=== PATIENT | male | born 1950 | race Caucasian/White ===

== ENCOUNTER 2018-11-09 12:14 | Emergency (ER) | payer OTHER ==
[2018-11-09] MEDS ORDERED: LIDOCAINE 1% MPF 2 ML AMPULE ONE (13:35)
--- NOTE | 2018-11-09 14:04 | ER ---
Nurse's Notes [facility] Name: Robert Gutierrez Age: 68 yrs Sex: Male : 1950 Arrival Date: 11/09/2018 Time: 12:21 Bed 23 Private MD: out of town, doctor Diagnosis: Sebaceous cyst Presentation: 11/09 12:26 Presenting complaint: Patient states: "I have a little cyst on my back just above the aj1 belt line. It started being uncomfortable yesterday, by the time I got home from work it was bigger and its all red" Denies drainage, fever. Transition of care: patient was not received from another setting of care. Onset of symptoms was October 2018. Risk Assessment: Do you want to hurt yourself or someone else? Patient reports no desire to harm self or others. Initial Sepsis Screen: Does the patient meet any 2 criteria? HR > 90 bpm. No. Patient's initial sepsis screen is negative. Does the patient have a suspected source of infection? Yes: Skin breakdown/wound. Care prior to arrival: None. 12:26 Method Of Arrival: Ambulatory aj 12:26 Acuity: DHRUV 4 aj1 Triage Assessment: 12:30 General: Appears in no apparent distress. comfortable, Behavior is calm, cooperative, aj1 appropriate for age. Pain: Complains of pain in coccyx Pain currently is 8 out of 10 on a pain scale. Neuro: Level of Consciousness is awake, alert, obeys commands. Cardiovascular: Patient's skin is warm and dry. Respiratory: Airway is patent Respiratory effort is even, unlabored, Respiratory pattern is regular, symmetrical. Historical: - Allergies: 12:30 No Known Allergies; aj1 - Home Meds: 12:30 Metformin Oral [Active]; Glipizide Oral [Active]; finesteride [Active]; Flomax Oral aj1 [Active]; Lisinopril Oral [Active]; meloxicam oral oral [Active]; - PMHx: 12:30 Diabetes - NIDDM; Hypertension; Arthritis; BPH; aj1 12:30 Agent Izard exposure; aj1 - Immunization history:: Flu vaccine is up to date. - Social history:: Smoking status: Patient/guardian denies using tobacco. - Ebola Screening: : Patient denies travel to an Ebola-affected area in the 21 days before illness onset. Screenin:17 Abuse screen: Denies threats or abuse. Nutritional screening: No deficits noted. tl3 Tuberculosis screening: No symptoms or risk factors identified. Fall Risk None identified. Assessment: 13:17 General: Appears uncomfortable, well groomed, well developed, well nourished, Behavior tl3 is calm, cooperative, appropriate for age. Pain: Complains of pain in right low back Pain currently is 8 out of 10 on a pain scale. Neuro: No deficits noted. Level of Consciousness is awake, alert, obeys commands, Oriented to person, place, time, situation, Appropriate for age. Cardiovascular: No deficits noted. Patient's skin is warm and dry. Respiratory: No deficits noted. Airway is patent Respiratory effort is even, unlabored, Respiratory pattern is regular, symmetrical. GI: No deficits noted. No signs and/or symptoms were reported involving the gastrointestinal system. : No deficits noted. No signs and/or symptoms were reported regarding the genitourinary system. EENT: No deficits noted. No signs and/or symptoms were reported regarding the EENT system. Derm: Abscess located on right low back is half dollar sized, has no drainage, is raised. 13:17 General: pt has cyst on lower back that has been there for 20 years, became enlarged tl3 and painful yesterday. 14:03 Reassessment: Patient appears in no apparent distress at this time. Patient and/or tl3 family updated on plan of care and expected duration. Pain level reassessed. Patient is alert, oriented x 3, equal unlabored respirations, skin warm/dry/pink. I\\T\\D complete, pt tolerated procedure well. Vital Signs: 12:30 BP 134 / 87; Pulse 92; Resp 18; Temp 98.3; Pulse Ox 96% on R/A; Weight 111.13 kg (R); aj1 Height 6 ft. 3 in. (190.50 cm) (R); Pain 8/10; 12:30 Body Mass Index 30.62 (111.13 kg, 190.50 cm) aj1 ED Course: 12:21 Patient arrived in ED. sb2 12:21 out of town, doctor is Private Physician. sb2 12:28 Triage completed. aj1 12:30 Arm band placed on Patient placed in waiting room, Patient notified of wait time. aj1 12:48 Mickail, Bart, PA is PHCP. [facility] 12:48 Teodoro Stevenson MD is Attending Physician. [facility] 13:17 Sally Crawford, RN is Primary Nurse. tl3 13:17 Patient has correct armband on for positive identification. Bed in low position. Call tl3 light in reach. Adult w/ patient. 13:17 No provider procedures requiring assistance completed. tl3 14:03 Kranthi Cool MD is Referral Physician. [facility] 14:31 Patient did not have IV access during this emergency room visit. tl3 Administered Medications: 13:45 Drug: Lidocaine (1 %) 5 mg {Note: per Bart.} Route: Infiltration; Site: affected area; tl3 14:04 Follow up: Response: No adverse reaction tl3 Outcome: 14:03 Discharge ordered by . [facility] 14:31 Discharged to home ambulatory. tl3 14:31 Condition: stable 14:31 Discharge instructions given to patient, family, Instructed on discharge instructions, follow up and referral plans. medication usage, wound care, Demonstrated understanding of instructions, follow-up care, medications, wound care, Prescriptions given X 2. 14:32 Patient left the ED. tl3 Signatures: Bea Cardozo RN RN aj1 Bart Lane PA PA Mariaelena Cartwright2 Sally Crawford, RN RN tl3
--- NOTE | 2018-11-09 14:04 | EDPHYS ---
Physician Documentation [facility] Name: Robert Gutierrez Age: 68 yrs Sex: Male : 1950 Arrival Date: 11/09/2018 Time: 12:21 Bed 23 Private MD: out of town, doctor ED Physician Teodoro Stevenson HPI: 11/09 13:04 This 68 yrs old Male presents to ER via Ambulatory with complaints of Abscess.jmm 13:04 the patient presents with a swollen area of the right low back. Onset: The [facility] symptoms/episode began/occurred gradually, 1 day(s) ago. Possible cause(s): unknown. Associated signs and symptoms: Pertinent negatives: fever. This is a 68 year old male with a history of dm, htn that presents to the ED with swelling and redness to his right lower back. Patient states he has had a mass there for an extended period of time with no pain. Patient states he noticed redness with increased pain beginning yesterday. Denies fever. Denies drainage. . Historical: - Allergies: 12:30 No Known Allergies; aj1 - Home Meds: 12:30 Metformin Oral [Active]; Glipizide Oral [Active]; finesteride [Active]; Flomax Oral aj1 [Active]; Lisinopril Oral [Active]; meloxicam oral oral [Active]; - PMHx: 12:30 Diabetes - NIDDM; Hypertension; Arthritis; BPH; aj1 12:30 Agent Polson exposure; aj1 - Immunization history:: Flu vaccine is up to date. - Social history:: Smoking status: Patient/guardian denies using tobacco. - Ebola Screening: : Patient denies travel to an Ebola-affected area in the 21 days before illness onset. ROS: 13:04 Constitutional: Negative for fever, chills, and weight loss. jmm 13:04 Skin: Positive for erythema, swelling. 13:04 All other systems are negative. Exam: 13:04 Constitutional: This is a well developed, well nourished patient who is awake, alert, jmm and in no acute distress. Head/Face: atraumatic. Eyes: EOMI, no conjunctival erythema appreciated ENT: Moist Mucus Membranes Neck: Trachea midline, Supple Chest/axilla: Normal chest wall appearance and motion. Cardiovascular: Regular rate and rhythm. No edema appreciated Respiratory: Normal respirations, no respiratory distress appreciated 13:04 Skin: fluctuant mass with erythema to the right lower back, mildly tender to palpation. . 13:04 Neuro: Orientation: is normal, Mentation: is normal, Memory: is normal. 13:04 Psych: Behavior/mood is pleasant, cooperative. Vital Signs: 12:30 BP 134 / 87; Pulse 92; Resp 18; Temp 98.3; Pulse Ox 96% on R/A; Weight 111.13 kg (R); aj1 Height 6 ft. 3 in. (190.50 cm) (R); Pain 8/10; 12:30 Body Mass Index 30.62 (111.13 kg, 190.50 cm) aj1 Procedures: 13:04 I \T\ D: Incision and drainage was performed for an abscess of the right right low back jmm Prepped with Betadine, Anesthetized with 5 ml's 1% Lidocaine. Incised with #11 blade. Drained small amount purulent fluid. Loculations removed. Abscess cavity explored. Packed with iodoform gauze, Dressing: sterile 4x4 gauze, the patient tolerated the procedure well. MDM: 13:04 Patient medically screened. [facility] 14:02 Data reviewed: vital signs, nurses notes. Counseling: I had a detailed discussion with [facility] the patient and/or guardian regarding: the historical points, exam findings, and any diagnostic results supporting the discharge/admit diagnosis, the need for outpatient follow up, to return to the emergency department if symptoms worsen or persist or if there are any questions or concerns that arise at home. Administered Medications: 13:45 Drug: Lidocaine (1 %) 5 mg {Note: per Bart.} Route: Infiltration; Site: affected area; tl3 14:04 Follow up: Response: No adverse reaction tl3 Disposition: 11/10 07:38 Co-signature as Attending Physician, Teodoro Stevenson MD. Disposition: 11/09/18 14:03 Discharged to Home. Impression: Sebaceous cyst. - Condition is Stable. - Discharge Instructions: Epidermal Cyst, [id number]. - Prescriptions for Ultracet 37.5- 325 mg Oral Tablet - take 1 tablet by ORAL route every 6 hours - for up to 5 days; do not exceed 8 tablets per day.; 9 tablet. Bactrim DS 800- 160 mg Oral Tablet - take 1 tablet by ORAL route every 12 hours for 10 days; 20 tablet. - Medication Reconciliation Form, Thank You Letter, Antibiotic Education, Prescription Opioid Use form. - Follow up: Kranthi Cool MD; When: 1 - 2 days; Reason: Recheck today's complaints, Continuance of care, Re-evaluation by your physician. Signatures: Bea Cardozo RN RN aj1 Bart Lane PA PA jmm Starr, Gregory, MD MD Sally Crawford RN RN tl3 Corrections: (The following items were deleted from the chart) 11/09 14:32 14:03 11/09/2018 14:03 Discharged to Home. Impression: Sebaceous cyst. Condition is tl3 Stable. Forms are Medication Reconciliation Form, Thank You Letter, Antibiotic Education, Prescription Opioid Use. Follow up: Dr. Kranthi Cool; When: 1 - 2 days; Reason: Recheck today's complaints, Continuance of care, Re-evaluation by your physician. luther
== END 2018-11-09 14:32 | disposition home or self-care (01) ==
LOC: ER 12:14
PROC: 0J970ZZ Drainage of Back Subcutaneous Tissue and Fascia, Open Approach (ICD-10-PCS; principal; 2018-11-09)
DX: L72.3 Sebaceous cyst (principal); I10 Essential (primary) hypertension; E11.9 Type 2 diabetes mellitus without complications
CPT/HCPCS: 99283; J2001

== ENCOUNTER 2018-11-29 13:22 | Emergency (ER) | payer OTHER ==
[2018-11-29 14:27] LABS: Absolute Lymphocytes (CBC) 1.3 K/uL (0.7-4.9); Absolute Monocytes 0.5 K/uL (0.1-1.3); Basophils % 0.6 % (0-1.3); Eosinophils % 2.2 % (0-4.4); Hematocrit 44.3 % (39.6-49.0); Lymphocytes % 21.2 % (15.3-44.8); Monocytes % 8.9 % (3.3-12.3); RBC Red Blood Cell Count 5.21 M/uL (4.33-5.43)
[2018-11-29 14:38] LABS: Albumin 3.3 g/dL (3.4-5.0); Bilirubin Direct 0.1 mg/dL (0-0.2); Bilirubin Total 0.3 mg/dL (0.2-1.0); Potassium 3.9 mmol/L (3.5-5.1); Protein, Total 6.1 g/dL (6.4-8.2)
[2018-11-29] MEDS ORDERED: ONDANSETRON 4 MG/2 ML VIAL ONE (14:43)
[2018-11-29] MEDS ORDERED: NA CHLORIDE 0.9% 1,000 ML ONE (15:59)
[2018-11-29 17:36] LABS: Potassium 3.5 mmol/L (3.5-5.1)
--- NOTE | 2018-11-29 17:39 | ER ---
Nurse's Notes [facility] Name: Robert Gutierrez Age: 68 yrs Sex: Male : 1950 Arrival Date: 11/29/2018 Time: 13:30 Bed 30 Private MD: Diagnosis: Dehydration;Orthostatic hypotension Presentation: 11/29 13:31 Presenting complaint: EMS states: nausea and vomiting for three days. Transition of tl3 care: patient was received from another setting of care ([facility] [place]. Onset of symptoms was November 27, 2018. Risk Assessment: Do you want to hurt yourself or someone else? Patient reports no desire to harm self or others. Initial Sepsis Screen: Does the patient meet any 2 criteria? No. Patient's initial sepsis screen is negative. Does the patient have a suspected source of infection? No. Patient's initial sepsis screen is negative. Care prior to arrival: Medication(s) given: Normal saline infusion, 500 mL, IV initiated. 18 GA, in the left antecubital area. 13:31 Method Of Arrival: EMS: [facility] tl3 13:31 Acuity: DHRUV 3 tl3 Triage Assessment: 13:34 General: Appears uncomfortable, well groomed, well developed, well nourished, Behavior tl3 is calm, cooperative, appropriate for age. Pain: Complains of pain in generalized aches. EENT: Reports nasal congestion. Neuro: Level of Consciousness is awake, alert, obeys commands, Oriented to person, place, time, situation, Appropriate for age. Cardiovascular: Patient's skin is warm and dry. Respiratory: Airway is patent Respiratory effort is even, unlabored, Respiratory pattern is regular, symmetrical. GI: Abdomen is round Reports vomiting. : No signs and/or symptoms were reported regarding the genitourinary system. Derm: No signs and/or symptoms reported regarding the dermatologic system. Musculoskeletal: No signs and/or symptoms reported regarding the musculoskeletal system. Historical: - Home Meds: 13:49 glipizide 10 mg oral tab 1.5 tabs 2 times per day [Active]; metformin 1,000 mg oral tab tl3 1 tab 2 times per day [Active]; meloxicam 15 mg oral tab 1 tab once daily for Rheumatoid Arthritis [Active]; atorvastatin 20 mg oral tab 1 tab once daily [Active]; finasteride 5 mg oral tab 1 tab once daily [Active]; gabapentin 600 mg oral tab 1 tab twice daily [Active]; lisinopril 5 mg Oral tab 1 tab once daily [Active]; omeprazole 20 mg Oral cpDR 1 cap 2 times per day [Active]; sertraline 100 mg oral tab 1 tab once daily [Active]; tamsulosin 0.4 mg oral cp24 2 caps once daily [Active]; aspirin 81 mg Oral chew 1 tab once daily [Active]; cyanocobalamin (vitamin B-12) 1,000 mcg oral tab daily [Active]; Fish Oil 1,000 mg oral cap daily [Active]; magnesium oxide 420 mg Oral tab 420 mg daily [Active]; - PMHx: 13:34 agent orange exposure; Arthritis; BPH; Diabetes - NIDDM; Hypertension; tl3 - Immunization history:: Adult Immunizations up to date. - Social history:: Smoking status: unknown. - Ebola Screening: : No symptoms or risks identified at this time. Screenin:37 Abuse screen: Denies threats or abuse. Nutritional screening: No deficits noted. tl3 Tuberculosis screening: No symptoms or risk factors identified. Fall Risk None identified. Assessment: 13:37 Reassessment: No changes from previously documented assessment. tl3 15:03 Reassessment: Patient appears in no apparent distress at this time. No changes from tl3 previously documented assessment. Patient and/or family updated on plan of care and expected duration. Pain level reassessed. Patient is alert, oriented x 3, equal unlabored respirations, skin warm/dry/pink. 15:55 Reassessment: Patient appears in no apparent distress at this time. No changes from tl3 previously documented assessment. Patient and/or family updated on plan of care and expected duration. Pain level reassessed. Patient is alert, oriented x 3, equal unlabored respirations, skin warm/dry/pink. no needs at this time. 16:39 Reassessment: Patient appears in no apparent distress at this time. No changes from tl3 previously documented assessment. Patient and/or family updated on plan of care and expected duration. Pain level reassessed. Patient is alert, oriented x 3, equal unlabored respirations, skin warm/dry/pink. second bolus infusing, Bart at bedside discussing POC, pt ambulated to the restroom without any difficulty. Vital Signs: 13:34 BP 119 / 77; Pulse 80; Resp 18; Temp 98.8; Pulse Ox 97% ; tl3 15:03 BP 124 / 76; Pulse 81; Resp 18; Pulse Ox 95% on R/A; tl3 15:12 BP 112 / 61 Supine; Pulse 75; Pulse Ox 95% ; tl3 15:12 BP 99 / 72 Sitting; Pulse 81; Pulse Ox 98% on R/A; tl3 15:12 BP 100 / 66; Pulse 83; Pulse Ox 99% on R/A; tl3 15:55 BP 109 / 72; Pulse 77; Resp 18; Pulse Ox 93% on R/A; tl3 ED Course: 13:30 Patient arrived in ED. tl3 13:31 Sally Crawford RN is Primary Nurse. tl3 13:33 Triage completed. tl3 13:34 Arm band placed on right wrist. tl3 13:37 Patient has correct armband on for positive identification. tl3 13:37 No provider procedures requiring assistance completed. Maintain EMS IV. Dressing tl3 intact. Good blood return noted. 13:55 Bart Baez PA is PHCP. jr8 13:55 Mert Kearns MD is Attending Physician. jr8 14:11 Initial lab(s) drawn, by me, sent to lab. jb1 17:19 Repeat lab(s) drawn. by me, sent to lab. iw Administered Medications: 14:08 Drug: NS 0.9% 1000 ml Route: IV; Rate: 1000 ml; Site: left antecubital; Delivery: tl3 Primary tubing; 15:04 Follow up: IV Status: Completed infusion; IV Intake: 1000ml tl3 14:38 Drug: Zofran 4 mg Route: IVP; Infused Over: 2 mins; Site: left antecubital; tl3 15:04 Follow up: Response: No adverse reaction tl3 15:55 Drug: NS 0.9% 1000 ml Route: IV; Rate: 1 bolus; Site: left antecubital; Delivery: tl3 Primary tubing; Intake: 15:04 IV: 1000ml; Total: 1000ml. tl3 Outcome: 17:39 Discharge ordered by . jr8 18:20 Patient left the ED. iw Signatures: Flavio Benavides jb1 Ines Berry RN RN Bart Baez PA PA jr8 Sally Crawford RN RN tl3 Corrections: (The following items were deleted from the chart) 14:02 13:34 Home Meds: finesteride; tl3 tl3 14:02 13:34 Home Meds: Flomax Oral; tl3 tl3 14:02 13:34 Home Meds: Glipizide Oral; tl3 tl3 14:02 13:34 Home Meds: lisinopril Oral; tl3 tl3 14:02 13:34 Home Meds: Metformin Oral; tl3 tl3 14:02 13:34 Home Meds: meloxicam Oral; tl3 tl3 15:54 15:53 BP 133 / 71; Pulse 85bpm; Resp 18bpm; Pulse Ox 93% RA; tl3 tl3 15:55 15:53 Reassessment: Patient appears in no apparent distress at this time. No changes tl3 from previously documented assessment. Patient and/or family updated on plan of care and expected duration. Pain level reassessed. Patient is alert, oriented x 3, equal unlabored respirations, skin warm/dry/pink. pt waiting on discharge, no acute distress noted, no other needs at this time tl3
--- NOTE | 2018-11-29 17:40 | EDPHYS ---
Physician Documentation [facility] Name: Robert Gutierrez Age: 68 yrs Sex: Male : 1950 Arrival Date: 11/29/2018 Time: 13:30 Bed 30 Private MD: ED Physician Mert Kearns HPI: 11/29 15:47 This 68 yrs old Male presents to ER via EMS with complaints of jr8 Nausea/Vomiting. 15:47 The patient presents to the emergency department with nausea, vomiting, diarrhea. jr8 Onset: The symptoms/episode began/occurred gradually, 4 day(s) ago. Possible causes: unknown. The symptoms are aggravated by nothing. The symptoms are alleviated by nothing. Associated signs and symptoms: Pertinent positives: fatigued . Severity of symptoms: At their worst the symptoms were moderate in the emergency department the symptoms are unchanged. The patient has not experienced similar symptoms in the past. The patient has been recently seen by a physician:. 15:47 Patient went to [place] [facility] today after having multiple days of n/v/d. Stated that he jr8 stopped having vomiting episodes last night and diarrhea but feeling very week. Patient was hypotensive at clinic. Historical: - Home Meds: 13:49 glipizide 10 mg oral tab 1.5 tabs 2 times per day [Active]; metformin 1,000 mg oral tab tl3 1 tab 2 times per day [Active]; meloxicam 15 mg oral tab 1 tab once daily for Rheumatoid Arthritis [Active]; atorvastatin 20 mg oral tab 1 tab once daily [Active]; finasteride 5 mg oral tab 1 tab once daily [Active]; gabapentin 600 mg oral tab 1 tab twice daily [Active]; lisinopril 5 mg Oral tab 1 tab once daily [Active]; omeprazole 20 mg Oral cpDR 1 cap 2 times per day [Active]; sertraline 100 mg oral tab 1 tab once daily [Active]; tamsulosin 0.4 mg oral cp24 2 caps once daily [Active]; aspirin 81 mg Oral chew 1 tab once daily [Active]; cyanocobalamin (vitamin B-12) 1,000 mcg oral tab daily [Active]; Fish Oil 1,000 mg oral cap daily [Active]; magnesium oxide 420 mg Oral tab 420 mg daily [Active]; - PMHx: 13:34 agent orange exposure; Arthritis; BPH; Diabetes - NIDDM; Hypertension; tl3 - Immunization history:: Adult Immunizations up to date. - Social history:: Smoking status: unknown. - Ebola Screening: : No symptoms or risks identified at this time. ROS: 17:37 Eyes: Negative for injury, pain, redness, and discharge, ENT: Negative for injury, jr8 pain, and discharge, Neck: Negative for injury, pain, and swelling, Cardiovascular: Negative for chest pain, palpitations, and edema, Respiratory: Negative for shortness of breath, cough, wheezing, and pleuritic chest pain, Back: Negative for injury and pain, MS/Extremity: Negative for injury and deformity, Skin: Negative for injury, rash, and discoloration, Neuro: Negative for headache, weakness, numbness, tingling, and seizure. 17:37 Abdomen/GI: Positive for nausea, vomiting, and diarrhea, Negative for abdominal pain, abdominal distension, anorexia, dysphagia, hematemesis, black/tarry stool, rectal pain, rectal bleeding, bowel incontinence, flatulence. Exam: 17:37 Eyes: Pupils equal round and reactive to light, extra-ocular motions intact. Lids and jr8 lashes normal. Conjunctiva and sclera are non-icteric and not injected. Cornea within normal limits. Periorbital areas with no swelling, redness, or edema. ENT: Nares patent. No nasal discharge, no septal abnormalities noted. Tympanic membranes are normal and external auditory canals are clear. Oropharynx with no redness, swelling, or masses, exudates, or evidence of obstruction, uvula midline. Mucous membranes moist. Neck: Trachea midline, no thyromegaly or masses palpated, and no cervical lymphadenopathy. Supple, full range of motion without nuchal rigidity, or vertebral point tenderness. No Meningismus. Cardiovascular: Regular rate and rhythm with a normal S1 and S2. No gallops, murmurs, or rubs. Normal PMI, no JVD. No pulse deficits. Respiratory: Lungs have equal breath sounds bilaterally, clear to auscultation and percussion. No rales, rhonchi or wheezes noted. No increased work of breathing, no retractions or nasal flaring. Abdomen/GI: Soft, non-tender, with normal bowel sounds. No distension or tympany. No guarding or rebound. No evidence of tenderness throughout. Back: No spinal tenderness. No costovertebral tenderness. Full range of motion. Skin: Warm, dry with normal turgor. Normal color with no rashes, no lesions, and no evidence of cellulitis. MS/ Extremity: Pulses equal, no cyanosis. Neurovascular intact. Full, normal range of motion. Neuro: Awake and alert, GCS 15, oriented to person, place, time, and situation. Cranial nerves II-XII grossly intact. Motor strength 5/5 in all extremities. Sensory grossly intact. Cerebellar exam normal. Normal gait. Vital Signs: 13:34 BP 119 / 77; Pulse 80; Resp 18; Temp 98.8; Pulse Ox 97% ; tl3 15:03 BP 124 / 76; Pulse 81; Resp 18; Pulse Ox 95% on R/A; tl3 15:12 BP 112 / 61 Supine; Pulse 75; Pulse Ox 95% ; tl3 15:12 BP 99 / 72 Sitting; Pulse 81; Pulse Ox 98% on R/A; tl3 15:12 BP 100 / 66; Pulse 83; Pulse Ox 99% on R/A; tl3 15:55 BP 109 / 72; Pulse 77; Resp 18; Pulse Ox 93% on R/A; tl3 MDM: 13:55 Patient medically screened. jr8 17:37 Data reviewed: vital signs, nurses notes, lab test result(s), and as a result, I will jr8 discharge patient. Data interpreted: Pulse oximetry: on room air is 95 %. Interpretation: normal. Counseling: I had a detailed discussion with the patient and/or guardian regarding: the historical points, exam findings, and any diagnostic results supporting the discharge/admit diagnosis, lab results, the need for outpatient follow up, a family practitioner, to return to the emergency department if symptoms worsen or persist or if there are any questions or concerns that arise at home. Response to treatment: the patient's symptoms have markedly improved after treatment, patient is well hydrated. ED course: Renal Function improved. Patient feeling better. Needs to f/u with PCP after the weekend . 11/29 13:55 Order name: Basic Metabolic Panel; Complete Time: 14:43 8 11/29 13:55 Order name: CBC with Diff; Complete Time: 14:43 8 11/29 13:55 Order name: Creatinine for Radiology; Complete Time: 14:43 8 11/29 13:55 Order name: Hepatic Function; Complete Time: 14:43 11/29 13:55 Order name: Lipase; Complete Time: 14:43 11/29 16:48 Order name: Basic Metabolic Panel 11/29 13:55 Order name: IV Saline Lock; Complete Time: 14:08 11/29 13:55 Order name: Labs collected and sent; Complete Time: 14:08 11/29 14:02 Order name: Orthostatics; Complete Time: 15:14 11/29 16:48 Order name: Basic Metabolic Panel; Complete Time: 17:37 EDMS Administered Medications: 14:08 Drug: NS 0.9% 1000 ml Route: IV; Rate: 1000 ml; Site: left antecubital; Delivery: tl3 Primary tubing; 15:04 Follow up: IV Status: Completed infusion; IV Intake: 1000ml tl3 14:38 Drug: Zofran 4 mg Route: IVP; Infused Over: 2 mins; Site: left antecubital; tl3 15:04 Follow up: Response: No adverse reaction tl3 15:55 Drug: NS 0.9% 1000 ml Route: IV; Rate: 1 bolus; Site: left antecubital; Delivery: tl3 Primary tubing; Disposition: 11/29/18 17:39 Discharged to Home. Impression: Dehydration, Orthostatic hypotension. - Condition is Stable. - Discharge Instructions: Dehydration, Adult, Orthostatic Hypotension. - Prescriptions for Zofran 4 mg Oral Tablet - take 1 tablet by ORAL route every 12 hours As needed; 20 tablet. - Medication Reconciliation Form, Thank You Letter, Antibiotic Education, Prescription Opioid Use form. - Follow up: Private Physician; When: 2 - 3 days; Reason: Recheck today's complaints, Continuance of care, Re-evaluation by your physician. - Problem is new. - Symptoms have improved. Addendum: 12/12/2018 07:33 Co-signature as Attending Physician, Mert Kearns MD I agree with the assessment and k dr plan of care. Signatures: Dispatcher [employer] EDNM Mert Kearns MD MD [facility] Ines Berry RN RN Bart Stafford, RICARDO PA jr8 Sally Crawford RN RN tl3 Corrections: (The following items were deleted from the chart) 01/04 14:02 13:34 Home Meds: finesteride; tl3 tl3 14:02 13:34 Home Meds: Flomax Oral; tl3 tl3 14:02 13:34 Home Meds: Glipizide Oral; tl3 tl3 14:02 13:34 Home Meds: lisinopril Oral; tl3 tl3 14:02 13:34 Home Meds: Metformin Oral; tl3 tl3 14:02 13:34 Home Meds: meloxicam Oral; tl3 tl3 15:49 15:47 The patient has not recently seen a physician, jr8 jr8 16:09 15:47 Patient went to [place] clinic today . jr8 jr8 18:20 17:39 11/29/2018 17:39 Discharged to Home. Impression: Dehydration; Orthostatic iw hypotension. Condition is Stable. Forms are Medication Reconciliation Form, Thank You Letter, Antibiotic Education, Prescription Opioid Use. Follow up: Private Physician; When: 2 - 3 days; Reason: Recheck today's complaints, Continuance of care, Re-evaluation by your physician. Problem is new. Symptoms have improved. jr8
== END 2018-11-29 18:20 | disposition home or self-care (01) ==
LOC: ER 13:22
DX: E86.0 Dehydration (principal); I95.1 Orthostatic hypotension; I10 Essential (primary) hypertension; E11.9 Type 2 diabetes mellitus without complications; Z79.82 Long term (current) use of aspirin
CPT/HCPCS: 36415; 80048; 80076; 83690; 85025; 96361; 96374; 99284; J2405; J7030

== ENCOUNTER 2019-06-12 02:16 | Emergency (ER) | payer OTHER ==
--- NOTE | 2019-06-12 02:54 | EDPHYS ---
Physician Documentation [facility] Name: Robert Gutierrez Age: 68 yrs Sex: Male : 1950 Arrival Date: 06/12/2019 Time: 02:17 Bed 8 Private MD: ED Physician Jesús Kelly HPI: 06/12 02:44 This 68 yrs old Male presents to ER via Ambulatory with complaints of Urinary pkl Retention. 02:44 The patient presents with urinary symptoms, retention. Onset: The symptoms/episode pkl began/occurred today. Patient had a tumor removed at [facility] yesterday morning. Had Sanchez cathether removed upon discharge. Was unable to urinate since then.. Historical: - Allergies: 02:30 No Known Allergies; rr5 - Home Meds: 02:30 aspirin 81 mg Oral chew 1 tab once daily [Active]; atorvastatin 20 mg Oral tab 1 tab rr5 once daily [Active]; cyanocobalamin (vitamin B-12) 1,000 mcg Oral tab daily [Active]; finasteride 5 mg Oral tab 1 tab once daily [Active]; Fish Oil 1,000 mg Oral cap daily [Active]; gabapentin 600 mg Oral tab 1 tab twice daily [Active]; glipizide 10 mg Oral tab 1.5 tabs 2 times per day [Active]; lisinopril 5 mg Oral tab 1 tab once daily [Active]; magnesium oxide 420 mg Oral tab 420 mg daily [Active]; omeprazole 20 mg Oral cpDR 1 cap 2 times per day [Active]; sertraline 100 mg Oral tab 1 tab once daily [Active]; metformin 1,000 mg Oral tab 1 tab 2 times per day [Active]; meloxicam 15 mg Oral tab 1 tab once daily for Rheumatoid Arthritis [Active]; tamsulosin 0.4 mg Oral cp24 2 caps once daily [Active]; - PMHx: 02:30 agent orange exposure; Arthritis; BPH; Diabetes - NIDDM; Hypertension; cancer of the rr5 nose; - PSHx: 02:30 tumor removal on the nose; rr5 - Immunization history:: Adult Immunizations up to date. - Social history:: Smoking status: unknown. - Ebola Screening: : No symptoms or risks identified at this time. ROS: 02:44 Eyes: Negative for injury, pain, redness, and discharge, ENT: Negative for injury, pkl pain, and discharge, Neck: Negative for injury, pain, and swelling, Cardiovascular: Negative for chest pain, palpitations, and edema, Respiratory: Negative for shortness of breath, cough, wheezing, and pleuritic chest pain, Abdomen/GI: Negative for abdominal pain, nausea, vomiting, diarrhea, and constipation, Back: Negative for injury and pain. 02:44 : Positive for difficulty urinating. 02:44 MS/extremity: Negative for acute changes. pkl 02:44 Skin: Negative for rash. 02:44 Neuro: Negative for altered mental status. Exam: 02:44 Head/Face: Normocephalic, atraumatic. Eyes: Pupils equal round and reactive to light, pkl extra-ocular motions intact. Lids and lashes normal. Conjunctiva and sclera are non-icteric and not injected. Cornea within normal limits. Periorbital areas with no swelling, redness, or edema. 02:44 ENT: S/P nose surgery. 02:44 Neck: Exam negative for nuchal rigidity. 02:44 Chest/axilla: Exam negative for acute changes. 02:44 Cardiovascular: Rate: tachycardic, actual rate is 102 bpm, Rhythm: regular. 02:44 Respiratory: the patient does not display signs of respiratory distress, Respirations: normal, Breath sounds: are clear throughout. 02:44 Abdomen/GI: Bowel sounds: normal, Palpation: Bladder distended. 02:44 Back: Exam negative for acute changes. 02:44 Musculoskeletal/extremity: Exam is negative for acute changes. 02:44 Skin: Exam negative for rash. 02:44 Neuro: Orientation: is normal, Mentation: is normal, Cranial nerves: grossly normal, Motor: is normal. Vital Signs: 02:30 BP 139 / 109; Pulse 102; Resp 18; Temp 97.8; Pulse Ox 96% ; Weight 111.13 kg; Height 6 rr5 ft. 3 in. (190.50 cm); Pain 10/10; 03:00 BP 145 / 83; Pulse 70; Resp 18; Pulse Ox 99% ; ea 02:30 Body Mass Index 30.62 (111.13 kg, 190.50 cm) rr5 MDM: 02:24 Patient medically screened. pkl 02:44 Data reviewed: vital signs, nurses notes. pkl 02:54 ED course: Advised to follow up with Urologist at [facility] next week. Patient pkl understood instruction. 06/12 02:44 Order name: Laura; Complete Time: 03:18 pkl Administered Medications: No medications were administered Disposition: 06/12/19 02:53 Discharged to Home. Impression: Acute retention of urine. - Condition is Stable. - Prescriptions for Cipro 250 mg Oral Tablet - take 1 tablet by ORAL route every 12 hours; 20 tablet. - Medication Reconciliation Form, Thank You Letter, Antibiotic Education, Prescription Opioid Use form. - Follow up: Private Physician; When: 1 week; Reason: Re-evaluation by your physician. - Problem is new. - Symptoms have improved. Signatures: Jesús Kelly MD MD pkl Silvia Khalil, RN RN Ko Rutledge RN RN rr5 Corrections: (The following items were deleted from the chart) 03:25 02:53 06/12/2019 02:53 Discharged to Home. Impression: Acute retention of urine. ea Condition is Stable. Forms are Medication Reconciliation Form, Thank You Letter, Antibiotic Education, Prescription Opioid Use. Follow up: Private Physician; When: 1 week; Reason: Re-evaluation by your physician. Problem is new. Symptoms have improved. pkl
--- NOTE | 2019-06-12 02:54 | ER ---
Nurse's Notes [facility] Name: Robert Gutierrez Age: 68 yrs Sex: Male : 1950 Arrival Date: 06/12/2019 Time: 02:17 Bed 8 Private MD: Diagnosis: Acute retention of urine Presentation: 06/12 02:30 Presenting complaint: Patient states: had a tumor removal on my nose yesterday morning rr5 they put a Sanchez catheter then take it out. after that I could not pee anymore. 02:30 Transition of care: patient was not received from another setting of care. Onset of rr5 symptoms was June 11, 2019. Risk Assessment: Do you want to hurt yourself or someone else? Patient reports no desire to harm self or others. Initial Sepsis Screen: Does the patient meet any 2 criteria? No. Patient's initial sepsis screen is negative. Does the patient have a suspected source of infection? No. Patient's initial sepsis screen is negative. Care prior to arrival: None. 02:30 Method Of Arrival: Ambulatory rr5 02:30 Acuity: DHRUV 3 rr5 Historical: - Allergies: 02:30 No Known Allergies; rr5 - Home Meds: 02:30 aspirin 81 mg Oral chew 1 tab once daily [Active]; atorvastatin 20 mg Oral tab 1 tab rr5 once daily [Active]; cyanocobalamin (vitamin B-12) 1,000 mcg Oral tab daily [Active]; finasteride 5 mg Oral tab 1 tab once daily [Active]; Fish Oil 1,000 mg Oral cap daily [Active]; gabapentin 600 mg Oral tab 1 tab twice daily [Active]; glipizide 10 mg Oral tab 1.5 tabs 2 times per day [Active]; lisinopril 5 mg Oral tab 1 tab once daily [Active]; magnesium oxide 420 mg Oral tab 420 mg daily [Active]; omeprazole 20 mg Oral cpDR 1 cap 2 times per day [Active]; sertraline 100 mg Oral tab 1 tab once daily [Active]; metformin 1,000 mg Oral tab 1 tab 2 times per day [Active]; meloxicam 15 mg Oral tab 1 tab once daily for Rheumatoid Arthritis [Active]; tamsulosin 0.4 mg Oral cp24 2 caps once daily [Active]; - PMHx: 02:30 agent orange exposure; Arthritis; BPH; Diabetes - NIDDM; Hypertension; cancer of the rr5 nose; - PSHx: 02:30 tumor removal on the nose; rr5 - Immunization history:: Adult Immunizations up to date. - Social history:: Smoking status: unknown. - Ebola Screening: : No symptoms or risks identified at this time. Screenin:00 Fall Risk None identified. ea 03:24 Abuse screen: Denies threats or abuse. Nutritional screening: No deficits noted. ea Tuberculosis screening: No symptoms or risk factors identified. Assessment: 02:40 General: Appears uncomfortable, Behavior is restless. Pain: Complains of pain in ea suprapubic area. Neuro: Level of Consciousness is awake, alert, obeys commands, Oriented to person, place, time, situation. Cardiovascular: Patient's skin is warm and dry. Respiratory: Airway is patent Respiratory effort is even, unlabored. Derm: Skin is pink, warm \T\ dry. 03:21 Reassessment: Patient and/or family updated on plan of care and expected duration. Pain ea level reassessed. Patient is alert, oriented x 3, equal unlabored respirations, skin warm/dry/pink. Discharge instruction given to patient and family. Sanchez catheter care education provided, both verbalized the understanding of instruction, 16 Fr Sanchez to leg bag, patent draining clear yellow urine. Pt left ED ambulatory accompanied by , pt tolerating well. Patient states symptoms have improved. Vital Signs: 02:30 BP 139 / 109; Pulse 102; Resp 18; Temp 97.8; Pulse Ox 96% ; Weight 111.13 kg; Height 6 rr5 ft. 3 in. (190.50 cm); Pain 10/10; 03:00 BP 145 / 83; Pulse 70; Resp 18; Pulse Ox 99% ; ea 02:30 Body Mass Index 30.62 (111.13 kg, 190.50 cm) rr5 ED Course: 02:17 Patient arrived in ED. ag3 02:23 Jesús Kelly MD is Attending Physician. pkl 02:31 Arm band placed on. rr5 02:35 Triage completed. rr5 02:40 Sanchez cath inserted, using sterile technique, 16 Fr., by me, balloon inflated, to ea gravity drainage. 02:42 Silvia Khalil RN is Primary Nurse. ea 02:45 Patient has correct armband on for positive identification. Bed in low position. Call ea light in reach. 03:24 No provider procedures requiring assistance completed. Patient did not have IV access ea during this emergency room visit. Administered Medications: No medications were administered Output: 03:20 Urine: 1000ml (Sanchez); Total: 1000ml. ea Outcome: 02:53 Discharge ordered by . doe 03:25 Discharged to home ambulatory, with significant other. ea 03:25 Condition: improved 03:25 Discharge instructions given to patient, significant other, Instructed on discharge instructions, follow up and referral plans. medication usage, Demonstrated understanding of instructions, follow-up care, medications, Prescriptions given X 1. 03:25 Patient left the ED. ea Signatures: Jesús Kelly MD MD pkl Antunez, Elena, RN RN Joanne Roque Raymond RN RN rr5
== END 2019-06-12 03:25 | disposition home or self-care (01) ==
LOC: ER 02:16
PROC: 0T9B70Z Drainage of Bladder with Drainage Device, Via Natural or Artificial Opening (ICD-10-PCS; principal; 2019-06-12)
DX: R33.9 Retention of urine, unspecified (principal); E11.9 Type 2 diabetes mellitus without complications; I10 Essential (primary) hypertension; C76.0 Malignant neoplasm of head, face and neck; Z79.84 Long term (current) use of oral hypoglycemic drugs; Z79.82 Long term (current) use of aspirin
CPT/HCPCS: 51702; 99284